=== PATIENT | male | born 1935 | race Caucasian/White ===

== ENCOUNTER → 2017-03-27 | Outpatient (CLI) | payer MEDICARE ==
[~2017-03-27] MED LIST: ACID1TAB3 PO; ALBU0.63 NEB; AMIO200T42 PO; AMOX1TAB61 PO; LISI-170 PO; MAGN400T26 PO; METO25TA35 PO; METO50TA82 PO; SIMV20TA3 PO; TAMS-11 PO; TIOT18CA INH; WARF2.5T PO
== END | disposition home or self-care (01) ==
LOC: CFH 10:49
PROVIDERS: ATTEND Nurse Practitioner Family
DX: R22.1 Localized swelling, mass and lump, neck (principal)
CPT/HCPCS: 76536